=== PATIENT | female | born 1985 | race Native Hawaiian/Other Pacific Islander ===

== ENCOUNTER 2020-10-15 15:15 | Emergency (ER) | payer OTHER ==
[~2020-10-15] VITALS: Ht 157.5 cm; Wt 90.7 kg
[2020-10-15 19:25] LABS: PLATELET COUNT 265 K/uL (152-353)
[2020-10-15 19:31] LABS: POTASSIUM 3.5 mmol/L (3.6-5.2); SODIUM 137 mmol/L (136-145)
[2020-10-15 21:30] VITALS: BP 102/55; TEMP 98.8
== END 2020-10-15 21:30 | disposition home or self-care (01) ==
LOC: ED 15:15
PROVIDERS: Emergency Medicine Emergency Medical Services
DX: U07.1 COVID-19 (principal); R07.89 Other chest pain
CPT/HCPCS: 80053; 84484; 85027; 87635; 93005; 96360; 96375; 99283; 99284; J1885; J2405; U0003